=== PATIENT | female | born 1995 | race Caucasian/White ===

== ENCOUNTER 2020-05-03 12:03 | Emergency (ER) | payer OTHER ==
[~2020-05-03] VITALS: Ht 160 cm; Wt 57.6 kg
[2020-05-03 12:06] VITALS: BP 108/77
--- NOTE | 2020-05-03 12:10 | NUR ---
24 Y/O FEMALE C/O VAGINAL BLEEDING X1 WEEK, PT STATES SHE HAS BEEN BLEEDING LARGE CLOTS WORSE SINCE 4 DAYS AGO. PT STATES SHE JUST FOUND OUT SHE WAS A WEEK AGO. PT STATES SHE STARTED SPOTTING 04/19/20 AND CLOTS BEGAN 04/27. PT STATED SHE WENT TO ER ON FRIDAY FOR C/O OF VAGINAL BLEEDING/CRAMPING AND THEY D/C AND SAID RETURN IF PAIN/BLEEDING WORSENS. PT RATES PAIN 10/10 IN SUPRAPUBIC REGION RADIATING TO LOWER PAIN THAT IS DULL. PT DENIES TAKING ANYTHING FOR PAIN. ON ASSESSMENT, ABD IS FLAT, SOFT, AND TENDER ON PALPATION. PT STATES LBM UNKNOWN, ACTIVE BOWEL SOUNDS X4 QUAD. PT STATES LMP 03/31/20. PT IS NAUSOUS BUT DENIES VOMITING/FEVER/CHILLS/DYSURIA. G-3, T-1, A-1 (MISCARRIAGE 10/14). PT IS A/O X4 WITH EVEN AND UNLABORED RESPIRATIONS. HX DENIES ALLERGIES: PCN
--- NOTE | 2020-05-03 12:10 | NUR ---
PT AMBULATED TO BED 2 WITH EVEN AND STEADY GAIT.
[2020-05-03] MEDS ORDERED: NACL 0.9% 1,000 ML IV ONE (12:25)
--- NOTE | 2020-05-03 12:34 | NUR ---
BLOOD SAMPLE AND URINE SAMPLE COLLECTED AND GIVEN TO JULISA GASPAR TECH
--- NOTE | 2020-05-03 12:37 | NUR ---
DR MCGEE AT BEDSIDE
--- NOTE | 2020-05-03 12:40 | NUR ---
US AT BEDSIDE
[2020-05-03 12:46] LABS: EOSINOPHILS # (AUTO) 0.1 K/uL (0-0.4); EOSINOPHILS % (AUTO) 1.2 % (0.0-4.0); HEMATOCRIT 42.1 % (36-48); HEMOGLOBIN 13.9 g/dL (12.0-16.0); LYMPHOCYTES # (AUTO) 1.7 K/uL (2.5-16.5); LYMPHOCYTES % (AUTO) 35.7 % (20.5-51.1); MEAN CORPUSCULAR HEMOGLOBIN 29 pg (27-31); MEAN CORPUSCULAR HGB CONC 33 g/dL (33-37); MEAN CORPUSCULAR VOLUME 87.2 fL (80-94); MONOCYTES # (AUTO) 0.3 K/uL (0.8-1.0); MONOCYTES % (AUTO) 5.9 % (1.7-9.3); NEUTROPHILS # (AUTO) 2.7 K/uL (1.8-7.7); NEUTROPHILS % (AUTO) 56.2 % (42.2-75.2); PLATELET COUNT (AUTO) 170 K/uL (140-450); RED BLOOD CELL COUNT(AUTO) 4.82 MIL/uL (4.20-5.40); RED CELL DISTRIBUTION WIDTH 14.9 % (11.6-13.7); WHITE BLOOD COUNT (AUTO) 4.7 K/uL (4.8-10.8)
[2020-05-03 13:10] LABS: BILIRUBIN,URINE NEGATIVE (NEGATIVE); BLOOD, URINE 3+ (NEGATIVE); COLOR,URINE YELLOW (YELLOW); LEUKOCYTE ESTERASE ,URINE NEGATIVE (NEGATIVE); NITRITE, URINE NEGATIVE (NEGATIVE); UGLUCOSE NEGATIVE (NEGATIVE)
[2020-05-03 13:13] LABS: ANION GAP 12.3 (8-16); CARBON DIOXIDE 26.5 mmol/L (21-32); CREATININE 0.6 mg/dL (0.6-1.3); POTASSIUM 3.8 mmol/L (3.5-5.1)
[2020-05-03 13:16] LABS: RBC,URINE 50-80 /HPF (0-5); WBC,URINE 0-5 /HPF (0-5)
[2020-05-03 13:17] LABS: APPEARANCE,URINE HAZY (CLEAR)
--- NOTE | 2020-05-03 13:34 | NUR ---
PT LAYING IN BED WITH EVEN AND UNLABORED RESPIRATIONS. PT C/O PAIN BUT STATES SHE DOES NOT WANT ANY PAIN MEDS AT THIS TIME. BED IN LOWEST POSITION, BRAKES LOCKED, X1 SIDE RAIL UP. WILL CONTINUE TO MONITOR
[2020-05-03 14:02] VITALS: BP 108/77
--- NOTE | 2020-05-03 14:03 | NUR ---
Patient discharged with v/s stable. Written and verbal after care instructions given and explained. Patient verbalized understanding. Ambulatory with steady gait. All questions addressed prior to discharge. Advised to follow up with PMD.
== END 2020-05-03 14:03 | disposition home or self-care (01) ==
LOC: MED 12:03
DX: O03.4 Incomplete spontaneous abortion without complication (principal); Z88.0 Allergy status to penicillin; Z3A.01 Less than 8 weeks gestation of pregnancy
CPT/HCPCS: 36415; 76801; 80048; 81001; 81025; 84702; 85025; 86900; 86901; 96360; 99284; J7030

== ENCOUNTER 2021-06-17 13:03 | Emergency (ER) | payer MEDICAID, OTHER ==
[~2021-06-17] VITALS: Ht 160 cm; Wt 51.3 kg
[2021-06-17 13:09] VITALS: BP 127/74
--- NOTE | 2021-06-17 13:19 | NUR ---
PT AMBULATED TO BED 10.
--- NOTE | 2021-06-17 13:29 | NUR ---
25 Y/O FEMALE BIB SELF C/O SHARP LOWER ABDOMINAL PAIN X3 WEEKS RADIATING TO THE LOWER BACK 9/10 PAIN. NAUSEA/VOMITING [id number], STATES THAT SHE VOMITS IMMEDIATELY AFTER EATING. TAKING UNSPECIFIED MEDICATION FOR N/V WITH MINIMAL EFFECT. DENIES DIARRHEA, FEVER.[id number]. 7 WEEKS . DENIES ANY VAGINAL BLEEDING OR DISCHARGE MEDHX: RT OVARIAN CYST ALLERGY: PENICILLIN
[2021-06-17] MEDS ORDERED: ONDANSETRON 4 MG/2 ML VIAL IVP ONE (14:05)
[2021-06-17] MEDS ORDERED: DEXT 5% / NACL 0.9% 500 ML IV ONE (14:05)
[2021-06-17] MEDS ORDERED: DEXT 5% /NACL 0.9% 1,000 ML IV ONE (15:00)
[2021-06-17 15:09] LABS: BASOPHILS % (AUTO) 0.4 % (0.0-2.0); EOSINOPHILS % (AUTO) 0.4 % (0.0-4.0); HEMATOCRIT 40.1 % (36-48); HEMOGLOBIN 13.5 g/dL (12.0-16.0); LYMPHOCYTES # (AUTO) 1.7 K/uL (2.5-16.5); LYMPHOCYTES % (AUTO) 21.3 % (20.5-51.1); MEAN CORPUSCULAR HEMOGLOBIN 29 pg (27-31); MEAN CORPUSCULAR HGB CONC 34 g/dL (33-37); MEAN CORPUSCULAR VOLUME 85.9 fL (80-94); MONOCYTES # (AUTO) 0.7 K/uL (0.8-1.0); MONOCYTES % (AUTO) 8.4 % (1.7-9.3); NEUTROPHILS # (AUTO) 5.5 K/uL (1.8-7.7); NEUTROPHILS % (AUTO) 69.5 % (42.2-75.2); PLATELET COUNT (AUTO) 145 K/uL (140-450); RED BLOOD CELL COUNT(AUTO) 4.66 MIL/uL (4.20-5.40); RED CELL DISTRIBUTION WIDTH 14.1 % (11.6-13.7); WHITE BLOOD COUNT (AUTO) 7.9 K/uL (4.8-10.8)
[2021-06-17 16:05] LABS: ANION GAP 14.5 (8-16); CREATININE 0.5 mg/dL (0.6-1.3); POTASSIUM 3.5 mmol/L (3.5-5.1)
--- NOTE | 2021-06-17 16:16 | NUR ---
OFFERED CRACKERS TOLERATED WELL
[2021-06-17 16:17] VITALS: BP 98/60
[2021-06-17] MEDS ORDERED: DOXY1TAB4 PO (16:25)
[2021-06-17] MEDS ORDERED: DIPH25TA53 PO (16:25)
--- NOTE | 2021-06-17 16:51 | NUR ---
Patient discharged with v/s stable. Written and verbal after care instructions given and explained for Hyperemesis Gravidarum. Patient alert, oriented and verbalized understanding of instructions. Ambulatory with steady gait. All questions addressed prior to discharge. ID band removed. Patient advised to follow up with PMD. Rx of Benadryl, Bonjesta ER 20-20 mg given. Patient educated on indication of medication including possible reaction and side effects. Opportunity to ask questions provided and answered.
== END 2021-06-17 16:51 | disposition home or self-care (01) ==
LOC: MED 13:03
DX: O21.0 Mild hyperemesis gravidarum (principal); Z88.0 Allergy status to penicillin; Z79.899 Other long term (current) drug therapy; Z3A.08 8 weeks gestation of pregnancy
CPT/HCPCS: 36415; 76817; 80048; 81002; 81025; 84702; 85025; 96361; 96374; 99284; J2405; Q0092